=== PATIENT | male | born 1980 | race Two or more races ===

== ENCOUNTER 2019-01-25 14:40 | Emergency (ER) | payer MEDICAID ==
[~2019-01-25] VITALS: Ht 180.3 cm; Wt 168.6 kg
[2019-01-25 14:44] VITALS: BP 118/75
[2019-01-25] MEDS ORDERED: PRED20TA PO (15:26)
== END 2019-01-25 15:31 | disposition home or self-care (01) ==
LOC: ER 14:41
DX: J31.0 Chronic rhinitis (principal); H69.81 Other specified disorders of Eustachian tube, right ear; L90.5 Scar conditions and fibrosis of skin; Z79.899 Other long term (current) drug therapy
CPT/HCPCS: 99283